=== PATIENT | female | born 1980 | race Caucasian/White ===

== ENCOUNTER 2016-04-07 15:59 | Emergency (ER) | payer OTHER, BC ==
[~2016-04-07] VITALS: Ht 167.6 cm; Wt 79.8 kg
[2016-04-07] MEDS ORDERED: SKELAXIN800 MG PO (19:17)
[2016-04-07 19:28] VITALS: BP 135/94
== END 2016-04-07 19:37 | disposition home or self-care (01) ==
LOC: EME 15:59
DX: S46.912A Strain of unspecified muscle, fascia and tendon at shoulder and upper arm level, left arm, initial encounter (principal); V49.40XA Driver injured in collision with unspecified motor vehicles in traffic accident, initial encounter
CPT/HCPCS: 73030; 99281; 99283